=== PATIENT | male | born 1960 | race Caucasian/White ===

== ENCOUNTER 2017-06-10 19:24 | Observation (INO) | payer MEDICARE, MEDICAID ==
[~2017-06-10 19:24] MED LIST: GABA100C4 PO; LAMO25 PO; METO1TAB42 PO; OXYC15TA PO
== END 2017-06-11 06:38 | disposition left against medical advice (07) ==
LOC: NEDDLT 06-11 03:59 → NEPFCDU 06-11 04:09
PROVIDERS: ADMIT Internal Medicine Cardiovascular Disease; ATTEND Internal Medicine Cardiovascular Disease
DX: R07.9 Chest pain, unspecified (principal); I25.10 Atherosclerotic heart disease of native coronary artery without angina pectoris; F31.9 Bipolar disorder, unspecified; F17.210 Nicotine dependence, cigarettes, uncomplicated; I10 Essential (primary) hypertension; Z98.1 Arthrodesis status; R94.31 Abnormal electrocardiogram [ECG] [EKG]
CPT/HCPCS: 71045; 80053; 82550; 82552; 83735; 83880; 84484; 85025; 85379; 85610; 85730; 93005; 99285; G0378